=== PATIENT | female | born 1970 | race Two or more races ===

== ENCOUNTER 2020-08-03 01:27 | Emergency (ER) | payer MEDICAID ==
[~2020-08-03] VITALS: Ht 157.5 cm; Wt 81.6 kg
[2020-08-03 04:30] VITALS: BP 132/81
== END 2020-08-03 05:53 | disposition home or self-care (01) ==
LOC: ER 01:30
DX: S20.211A Contusion of right front wall of thorax, initial encounter (principal); S40.811A Abrasion of right upper arm, initial encounter; V43.52XA Car driver injured in collision with other type car in traffic accident, initial encounter; Y93.89 Activity, other specified; Y92.488 Other paved roadways as the place of occurrence of the external cause; Y99.8 Other external cause status
CPT/HCPCS: 71046; 73130